=== PATIENT | female | born 1970 | race Caucasian/White ===

== ENCOUNTER 2017-08-08 22:22 | Emergency (ER) | payer OTHER ==
[2017-08-09 03:19] LABS: ADD MAN DIFF? NO
[2017-08-09 03:20] LABS: BASOPHILS % 0.3 % (0.0-2.0); EOSINOPHILS # 0.2 10^3/ul (0.0-0.5); EOSINOPHILS % 1.5 % (0.0-7.0); HEMOGLOBIN 9.2 g/dl (12.0-16.0); LYMPHOCYTES # 3.3 10^3/ul (0.8-2.9); LYMPHOCYTES % 33.5 % (15.0-51.0); MEAN CORPUSCULAR HGB CONC 32.9 g/dl (32.0-37.0); MEAN CORPUSCULAR VOLUME 85.1 fl (82.0-101.0); MONOCYTE # 0.7 10^3/ul (0.3-0.9); MONOCYTES % 6.9 % (0.0-11.0); NEUTROPHIL # 5.7 10^3/ul (1.6-7.5); NEUTROPHILS % 57.6 % (39.0-77.0); PLATELET COUNT 371 10^3/UL (140-415); RED BLOOD COUNT 3.29 10^6/ul (4.20-5.40); RED CELL DISTRIBUTION WIDTH 13.2 % (11.5-14.5)
[2017-08-09 03:20] LABS: WHITE BLOOD COUNT 9.9 10^3/ul (4.8-10.8)
[2017-08-09 03:46] LABS: ANION GAP 15 (8-16); BLOOD UREA NITROGEN 28 mg/dl (7-20); CALCIUM 8.6 mg/dl (8.4-10.2); CARBON DIOXIDE 27 mmol/L (21-31); CHLORIDE 104 mmol/L (97-110); CREATININE 1.53 mg/dl (0.44-1.00); GLUCOSE 147 mg/dl (70-220); POTASSIUM 3.9 mmol/L (3.5-5.1); SODIUM 142 mmol/L (135-144)
== END 2017-08-09 05:05 | disposition home or self-care (01) ==
LOC: E/R 22:22
DX: E11.649 Type 2 diabetes mellitus with hypoglycemia without coma (principal); I10 Essential (primary) hypertension; Z79.4 Long term (current) use of insulin; Z79.82 Long term (current) use of aspirin
CPT/HCPCS: 80048; 82962; 85025; 99283

== ENCOUNTER 2017-12-02 07:30 | Day surgery (SDC) | payer OTHER ==
[2017-12-02] MEDS: LACTATED RINGER'S 1,000 ML IV (07:00)
[~2017-12-02 07:30] MED LIST: CEFAZOLIN 1 GM INJ; ROCURONIUM 50 MG INJ; SOD CHLORIDE 0.9% 1,000 ML IV; SUCCINYLCHOLINE CHLORIDE 100 MG/5 ML SYG IV
[2017-12-02] MEDS ORDERED: MIDAZOLAM 1 MG/ML 2 ML INJ (10:21)
[2017-12-02] MEDS ORDERED: FENTAnyl 50 MCG/ML VIAL (10:21)
[2017-12-02] MEDS ORDERED: ONDANSETRON 4 MG INJ (10:26)
[2017-12-02] MEDS ORDERED: PROPOFOL 20 ML (10:26)
[2017-12-02] MEDS ORDERED: LIDOCAINE 100 MG SYRINGE (10:26)
[2017-12-02] MEDS ORDERED: morphine 2 MG INJ (11:51)
[2017-12-02] MEDS ORDERED: NEOSTIGMINE 3 MG/3 ML SYRINGE (11:57)
[2017-12-02] MEDS ORDERED: GLYCOPYRROLATE 0.4 MG INJ (11:57)
[2017-12-02] MEDS ORDERED: ONDANSETRON 4 MG INJ IV (12:00)
[2017-12-02] MEDS ORDERED: morphine (1 MG/ML) 10ML SYRINGE IV (12:00)
[2017-12-02] MEDS ORDERED: FENTAnyl 50 MCG/ML VIAL IV (12:00)
[2017-12-02] MEDS ORDERED: OXYCODONE/ACETAMINOPHEN (5/325) TAB PO ×2 (12:00)
[2017-12-02] MEDS: morphine 2 MG INJ IV (12:01)
== END 2017-12-02 14:50 | disposition home or self-care (01) ==
LOC: SDS 07:30
DX: N93.9 Abnormal uterine and vaginal bleeding, unspecified (principal); E11.9 Type 2 diabetes mellitus without complications; I10 Essential (primary) hypertension; I12.9 Hypertensive chronic kidney disease with stage 1 through stage 4 chronic kidney disease, or unspecified chronic kidney disease; N18.2 Chronic kidney disease, stage 2 (mild); Z87.891 Personal history of nicotine dependence; E66.01 Morbid (severe) obesity due to excess calories; Z68.42 Body mass index [BMI] 45.0-49.9, adult; E78.00 Pure hypercholesterolemia, unspecified
CPT/HCPCS: 58120; 82962; 84703; 88305; 93005